=== PATIENT | female | born 1965 | race Caucasian/White ===

== ENCOUNTER 2018-02-22 14:41 | Inpatient (IN) | payer SELFPAY ==
[~2018-02-22] VITALS: Ht 152.4 cm; Wt 42.6 kg
[2018-02-22] MEDS: BLOOD SUGAR DIAGNOSTIC STRIP TEST SCH (00:20)
[~2018-02-22 14:41] MED LIST: INSULIN
[2018-02-22] MEDS ORDERED: METF-815 PO (15:01)
[2018-02-22] MEDS ORDERED: ACETAMINOPHEN 325MG TABLET PO STA (15:31)
[2018-02-22] MEDS ORDERED: ONDANSETRON HCL 4MG/2ML VIAL IV STA (15:31)
[2018-02-22] MEDS ORDERED: KETOROLAC 30MG/ML VIAL IV STA (15:31)
[2018-02-22] MEDS ORDERED: SODIUM CHLORIDE 0.9% 1,000 ML IV ONE (15:31)
[2018-02-22] MEDS ORDERED: CEFTRIAXONE 1 G PREMIX 50 ML IV ONE (15:45)
[2018-02-22 15:48] LABS: BASOPHILS % 0.5 % (0.0-2.0); HEMATOCRIT. 38.4 % (36.0-48.0); HEMOGLOBIN. 12.7 g/dL (12.0-16.0); LYMPHOCYTES % 8.4 % (20.0-50.0); MEAN CORPUSCULAR HEMOGLOBIN 26.9 pg (28.0-32.0); MEAN CORPUSCULAR VOLUME 81.1 fL (81.0-99.0); MEAN PLATELET VOLUME 8.5 fl (7.4-10.4); MONOCYTES % 8.7 % (2.0-8.0); NEUTROPHILS % 81.4 % (40.0-76.0); PLATELET 357 x1000/uL (130-400); RED BLOOD CELL COUNT 4.73 mill/uL (4.2-5.4); RED CELL DISTRIBUTION WIDTH 15.6 % (11.6-14.6)
[2018-02-22 15:52] LABS: CHLORIDE 96 mEq/L (98-107)
[2018-02-22 15:56] LABS: PROTHROMBIN TIME 9.9 sec (9.4-11.6)
[2018-02-22 16:01] LABS: CREATINE KINASE 18 IU/L (26-192)
[2018-02-22 16:06] LABS: HCG SCREEN NEGATIVE
[2018-02-22 17:54] LABS: CLARITY URINE CLOUDY (CLEAR); COLOR URINE ORANGE (YELLOW); KETONES URINE 2+ (NEGATIVE); LEUKOCYTE ESTERASE URINE 2+ (NEGATIVE); NITRITE URINE POSITIVE (NEGATIVE); OCCULT BLOOD URINE 3+ (NEGATIVE); PH URINE 5.5 (4.5-8.0); PROTEIN URINE 3+ (NEGATIVE)
[2018-02-22 18:15] LABS: *AMPHETAMINES SCREEN URINE NEGATIVE (NEGATIVE); *BARBITURATES SCREEN URINE NEGATIVE (NEGATIVE); *BENZODIAZEPINES SCREEN URINE NEGATIVE (NEGATIVE)
[2018-02-22 18:16] LABS: *COCAINE SCREEN URINE NEGATIVE (NEGATIVE); CANNABINOID URINE SCREEN PRESUMTIVE POSITIVE (NEGATIVE); METHADONE URINE SCREEN NEGATIVE (NEGATIVE); OPIATES URINE SCREEN NEGATIVE (NEGATIVE); PHENCYCLIDINE URINE SCREEN NEGATIVE (NEGATIVE)
[2018-02-22] MEDS ORDERED: CLONIDINE 0.1MG TABLET PO PRN (21:00)
[2018-02-22] MEDS ORDERED: NA PHOS,M-B/NA PHOS,DI-BA ENEMA 118ML PR PRN (21:00)
[2018-02-22] MEDS ORDERED: ZOLPIDEM TARTRATE 5MG TABLET PO PRN (21:00)
[2018-02-22] MEDS ORDERED: DEXTROSE 50% WATER 50ML SYRINGE IV PRN (21:00)
[2018-02-22] MEDS ORDERED: GUAIFENESIN 200MG/10ML SUGAR FREE UDC PO PRN (21:00)
[2018-02-22] MEDS ORDERED: KETOROLAC 15MG/ML VIAL IV PRN (21:00)
[2018-02-22] MEDS ORDERED: MAGNESIUM/ALUMINUM HYDROXIDE/SIMETHICONE 30ML UDC PO PRN (21:00)
[2018-02-22] MEDS ORDERED: DOCUSATE SODIUM 100MG CAPSULE PO PRN (21:00)
[2018-02-22] MEDS ORDERED: IPRATROPIUM/ALBUTEROL 0.5-3(2.5)MG/3ML NEB INH PRN (21:00)
[2018-02-22] MEDS ORDERED: DIPHENHYDRAMINE 50MG/ML VIAL IV PRN (21:00)
[2018-02-22] MEDS ORDERED: LORAZEPAM 0.5MG TABLET PO PRN (21:00)
[2018-02-22] MEDS ORDERED: NITROGLYCERIN 0.4MG TABLET SL SL PRN (21:45)
[2018-02-22 22:00] VITALS: BP 158/81
[2018-02-22 22:16] VITALS: BP 158/81
[2018-02-22] MEDS ORDERED: ONDANSETRON 4MG ODT PO PRN (22:45)
[2018-02-22] MEDS ORDERED: LEVOFLOXACIN 500MG PREMIX 100 ML IV SCH (23:45)
[2018-02-23] MEDS: FAMOTIDINE 20MG TABLET PO SCH ×3 (00:02→20:56)
[2018-02-23] MEDS: ASCORBIC ACID 500 MG TABLET PO SCH ×3 (00:03→20:56)
[2018-02-23] MEDS: ENOXAPARIN 40MG/0.4ML SYR SUBCUT SCH ×2 (00:07→21:09)
[2018-02-23] MEDS: INSULIN GLARGINE UD 100 UNITS/ML SYR SUBCUT SCH (00:31)
[2018-02-23] MEDS: INSULIN LISPRO 100 UNITS/ML SUBCUT SCH ×5 (00:47→21:28)
[2018-02-23 04:00] VITALS: BP 110/66
[2018-02-23] MEDS: BLOOD SUGAR DIAGNOSTIC STRIP TEST SCH ×4 (07:20→21:02)
[2018-02-23] MEDS: ACETAMINOPHEN 325MG TABLET PO PRN ×2 (09:04→17:30)
[2018-02-23] MEDS: ZINC SULFATE 220 MG ( 50 ) CAPSULE PO SCH (09:04)
[2018-02-23 16:03] LABS: CHLORIDE 102 mEq/L (98-107)
[2018-02-23 16:04] LABS: BASOPHILS % 0.7 % (0.0-2.0); EOSINOPHILS % 3.5 % (0.0-5.0); HEMATOCRIT. 32.4 % (36.0-48.0); HEMOGLOBIN. 10.9 g/dL (12.0-16.0); LYMPHOCYTES % 11.3 % (20.0-50.0); MEAN CORPUSCULAR HEMOGLOBIN 27.7 pg (28.0-32.0); MEAN CORPUSCULAR VOLUME 82.1 fL (81.0-99.0); MEAN PLATELET VOLUME 8.8 fl (7.4-10.4); MONOCYTES % 8.5 % (2.0-8.0); PLATELET 325 x1000/uL (130-400); RED BLOOD CELL COUNT 3.95 mill/uL (4.2-5.4); RED CELL DISTRIBUTION WIDTH 15.4 % (11.6-14.6)
[2018-02-23] MEDS ORDERED: CEFTRIAXONE 1 G PREMIX 50 ML IV SCH ×2 (17:00→18:30)
[2018-02-23 20:00] VITALS: BP 138/70
[2018-02-24] VITALS: BP 115/64
[2018-02-24] MEDS: INSULIN GLARGINE UD 100 UNITS/ML SYR SUBCUT SCH (00:37)
[2018-02-24] MEDS ORDERED: LEVOFLOXACIN 500MG PREMIX 100 ML IV SCH (01:00)
[2018-02-24 04:00] VITALS: BP 122/63
[2018-02-24] MEDS: BLOOD SUGAR DIAGNOSTIC STRIP TEST SCH ×2 (07:58→12:20)
[2018-02-24] MEDS: FAMOTIDINE 20MG TABLET PO SCH (08:12)
[2018-02-24] MEDS: ZINC SULFATE 220 MG ( 50 ) CAPSULE PO SCH (08:12)
[2018-02-24] MEDS: ASCORBIC ACID 500 MG TABLET PO SCH (08:12)
[2018-02-24] MEDS: INSULIN LISPRO 100 UNITS/ML SUBCUT SCH ×2 (09:41→12:45)
[2018-02-24 12:00] VITALS: BP 148/70
[2018-02-24] MEDS ORDERED: NITROGLYCERIN 0.4MG TABLET SL SL PRN (12:45)
[2018-02-24 12:57] VITALS: BP 148/70
== END 2018-02-24 13:55 | disposition home or self-care (01) | DRG 463 ==
LOC: ER 14:41 → 6EST 20:10 → EDBEDREQTM 20:23 → EDBEDREQ 20:23 → ENRESERV 20:40 → EDBEDREQ 21:40 → 6EST 23:10
PROVIDERS: ADMIT Internal Medicine; ATTEND Internal Medicine
DX: N12 Tubulo-interstitial nephritis, not specified as acute or chronic (principal); E44.0 Moderate protein-calorie malnutrition; E87.1 Hypo-osmolality and hyponatremia; E11.65 Type 2 diabetes mellitus with hyperglycemia; R74.0 Nonspecific elevation of levels of transaminase and lactic acid dehydrogenase [LDH]; R79.89 Other specified abnormal findings of blood chemistry; Z87.442 Personal history of urinary calculi; Z79.84 Long term (current) use of oral hypoglycemic drugs; Z79.4 Long term (current) use of insulin; Z68.1 Body mass index [BMI] 19.9 or less, adult
CPT/HCPCS: 36415; 71045; 74176; 76830; 76856; 80053; 80305; 81003; 82550; 82962; 83036; 83605; 83690; 83880; 84484; 84703; 85025; 85610; 87040; 87077; 87086; 87186; 93005; 93970; 96365; 96366; 96375; 99285; J0696; J1650; J1815; J1885; J1956; J2405; J7030; J7040; J7050

== ENCOUNTER 2019-08-05 15:09 | Emergency (ER) | payer MEDICAID ==
[~2019-08-05] VITALS: Ht 152.4 cm; Wt 45.0 kg
[~2019-08-05 15:09] MED LIST changes: +METF-815 PO
[2019-08-05 18:56] LABS: HEMATOCRIT. 38.1 % (36.0-48.0); HEMOGLOBIN. 13.1 g/dL (12.0-16.0); MEAN CORPUSCULAR VOLUME 90.2 fL (81.0-99.0); MEAN PLATELET VOLUME 7.7 fl (7.4-10.4); PLATELET 266 x1000/uL (130-400); RED BLOOD CELL COUNT 4.23 mill/uL (4.2-5.4); RED CELL DISTRIBUTION WIDTH 13.1 % (11.6-14.6)
[2019-08-05 18:58] LABS: CHLORIDE 109 mEq/L (98-107)
[2019-08-05 19:01] LABS: PROTHROMBIN TIME 10.1 sec (9.6-11.0)
[2019-08-05 20:13] LABS: PLATELET ESTIMATE NORMAL
[2019-08-06] MEDS ORDERED: HYDRALAZINE HCL 10MG TABLET PO ONE (00:30)
[2019-08-06 00:35] VITALS: BP 189/92
== END 2019-08-06 01:06 ==
LOC: ER 15:09
DX: H57.12 Ocular pain, left eye (principal); H53.8 Other visual disturbances; I10 Essential (primary) hypertension; E11.9 Type 2 diabetes mellitus without complications
CPT/HCPCS: 36415; 80053; 82962; 85025; 99283